=== PATIENT | female | born 1960 | race Two or more races ===

== ENCOUNTER 2021-04-12 08:45 | Inpatient (IN) | payer OTHER ==
[~2021-04-12] VITALS: Ht 157.5 cm; Wt 84.8 kg
[2021-04-12] MEDS ORDERED: GABAPENTIN400 MG PO (10:52)
[2021-04-12] MEDS ORDERED: ARTHRITIS PAIN650 MG PO (10:53)
[2021-04-14] MEDS ORDERED: RESTORIL15 MG (07:58)
[2021-04-14] MEDS ORDERED: PANTOPRAZOLE SO40 MG (07:58)
[2021-04-14] MEDS ORDERED: CLOTRIMAZOLE-BE15 G1 (07:58)
[2021-04-14] MEDS ORDERED: DICLOFENAC POTA50 MG (07:58)
[2021-04-14] MEDS ORDERED: SERTRALINE HCL50 MG (07:58)
[2021-04-17] MEDS ORDERED: PERCOCET 5-3251 EACH PO (14:29)
== END 2021-04-17 15:37 | disposition home or self-care (01) | DRG 330 ==
LOC: O/R 04-14 05:25 → SURH 04-14 05:25
PROVIDERS: ADMIT Surgery; ATTEND Surgery
PROC: 07BC4ZZ Excision of Pelvis Lymphatic, Percutaneous Endoscopic Approach (ICD-10-PCS; 2021-04-14)
PROC: 0DTF4ZZ Resection of Right Large Intestine, Percutaneous Endoscopic Approach (ICD-10-PCS; principal; 2021-04-14 10:15)
PROC: 4A12X4Z Monitoring of Cardiac Electrical Activity, External Approach (ICD-10-PCS; 2021-04-15)
PROC: 30233N1 Transfusion of Nonautologous Red Blood Cells into Peripheral Vein, Percutaneous Approach (ICD-10-PCS; 2021-04-16)
DX: C18.2 Malignant neoplasm of ascending colon (principal); D62 Acute posthemorrhagic anemia; C77.9 Secondary and unspecified malignant neoplasm of lymph node, unspecified; R59.0 Localized enlarged lymph nodes

== ENCOUNTER 2021-05-19 05:20 | Day surgery (SDC) | payer OTHER ==
[~2021-05-19 05:20] MED LIST: ARTHRITIS PAIN650 MG PO; CLOTRIMAZOLE-BE15 G1; DICLOFENAC POTA50 MG; GABAPENTIN400 MG PO; PANTOPRAZOLE SO40 MG; PERCOCET 5-3251 EACH PO; RESTORIL15 MG; SERTRALINE HCL50 MG; ULTRAM50 MG PO; VITAMIN C500 M6 PO
[2021-05-19] MEDS ORDERED: PERCOCET 5-3251 EACH PO (08:58)
== END 2021-05-19 10:00 | disposition home or self-care (01) ==
LOC: CIR.AMB 05:20
PROVIDERS: ATTEND Surgery
DX: C18.9 Malignant neoplasm of colon, unspecified (principal)

== ENCOUNTER 2022-02-09 06:02 | Day surgery (SDC) | payer OTHER ==
[~2022-02-09] VITALS: Ht 160 cm; Wt 81.2 kg
[2022-02-09] MEDS ORDERED: ULTRACET PO (10:23)
== END 2022-02-09 12:20 | disposition home or self-care (01) ==
LOC: CIR.AMB 06:02
PROVIDERS: ATTEND Surgery
DX: C18.2 Malignant neoplasm of ascending colon (principal); Z92.21 Personal history of antineoplastic chemotherapy; D50.9 Iron deficiency anemia, unspecified; Z91.018 Allergy to other foods; Z20.822 Contact with and (suspected) exposure to COVID-19